=== PATIENT | female | born 1985 | race Caucasian/White ===

== ENCOUNTER 2016-12-14 06:07 | Inpatient (IN) | payer OTHER ==
[~2016-12-14] VITALS: Ht 160 cm; Wt 98.6 kg
[2017-01-07] MEDS ORDERED: PRENATAL MVI (10:41)
[2017-01-10] VITALS (50 sets, daily range): BP systolic 94–144; BP diastolic 55–92; PULSE 68–99; TEMP 97.6–98.9
[2017-01-10 08:23] LABS: BASO # 0.1 (0.0-0.2); BASO % 0.7 % (0.0-2.0); EOS # 0.1 (0.0-0.7); EOS % 1.7 % (0-4.0); GRAN # 4.8 (1.4-6.5); GRAN % 63.3 % (42.2-75.2); HEMATOCRIT 38.1 % (37.0-47.0); HEMOGLOBIN 12.3 g/dl (12.5-16.0); LYMPH % 26.7 % (20.0-51.0); MEAN CELL VOLUME 77 fl (80.0-100.0); MEAN CORPUSCULAR HEMOGLOBIN 25 pg (27.0-31.0); MEAN CORPUSCULAR HGB CONC 32 g/dl (33.0-37.0); MEAN PLATELET VOLUME 10.2 fl (7.4-10.4); MONO # 0.5 (0.1-0.6); MONO % 7.2 % (1.7-9.3); PLATELET COUNT 257 K/mm3 (130-400); RED BLOOD COUNT 4.96 M/mm3 (4.10-5.30); REDCELL DISTRIBUTION WIDTH-CV 18.9 % (11.5-14.5); WHITE BLOOD COUNT 7.5 K/mm3 (4.8-10.8)
[2017-01-11 02:30] VITALS: BP 115/54; PULSE 92; TEMP 98.1
[2017-01-11 06:27] LABS: HEMATOCRIT 34.2 % (37.0-47.0); HEMOGLOBIN 10.9 g/dl (12.5-16.0)
[2017-01-11 07:00] VITALS: BP 113/62; PULSE 89; TEMP 97.8
[2017-01-11] MEDS ORDERED: BREASTPUMP MC (09:22)
[2017-01-11 13:30] VITALS: BP 120/64; PULSE 94; TEMP 98.3
[2017-01-11 19:00] VITALS: BP 135/76; PULSE 95; TEMP 98.1
[2017-01-12 07:40] VITALS: BP 101/63; PULSE 85; TEMP 97.8
== END 2017-01-12 13:20 | disposition home or self-care (01) | DRG 774 ==
LOC: LDR → OB 01-10 07:06 → LDR 01-10 07:06 → OB 01-10 21:15 → LDRO 01-24 06:06 → EDSTATUS 01-24 06:43
PROVIDERS: Obstetrics & Gynecology
PROC: 10E0XZZ Delivery of Products of Conception, External Approach (ICD-10-PCS; principal; 2017-01-10)
PROC: 0KQM0ZZ Repair Perineum Muscle, Open Approach (ICD-10-PCS; 2017-01-10)
PROC: 3E033VJ Introduction of Other Hormone into Peripheral Vein, Percutaneous Approach (ICD-10-PCS; 2017-01-10)
DX: O14.03 Mild to moderate pre-eclampsia, third trimester (principal); O70.1 Second degree perineal laceration during delivery; Z3A.38 38 weeks gestation of pregnancy; Z37.0 Single live birth
CPT/HCPCS: J2590; J3010; J7120

== ENCOUNTER 2017-01-07 10:12 | Outpatient (CLI) | payer OTHER ==
[~2017-01-07] VITALS: Ht 160 cm; Wt 97.7 kg
[2017-01-07 10:28] VITALS: BP 125/83; PULSE 91; TEMP 97.7
[2017-01-07] MEDS ORDERED: PRENATAL MVI (10:41)
[2017-01-07 10:50] VITALS: BP 118/75; PULSE 80; PULSE 89
== END 2017-01-07 11:40 ==
LOC: LDRO 10:12
DX: O42.92 Full-term premature rupture of membranes, unspecified as to length of time between rupture and onset of labor (principal); Z3A.37 37 weeks gestation of pregnancy